=== PATIENT | female | born 1945 | race Caucasian/White ===

== ENCOUNTER 2018-05-08 09:54 | Day surgery (SDC) | payer MEDICARE, MEDICAID ==
[~2018-05-08] VITALS: Ht 152.4 cm; Wt 63.5 kg
[2018-05-08] VITALS (10 sets, daily range): BP systolic 137–163; BP diastolic 70–82
[~2018-05-08 09:54] MED LIST: CRESTOR10 M2 ORAL; LEVOTHYROXINE75 MCG ORAL; ceFAZolin sod 1 GM in NS 55 ML IVPB ONE
[2018-05-08] MEDS ORDERED: Midazolam 2mg/2ml Inj ONE (09:55)
[2018-05-08 10:22] LABS: HEMOGLOBIN 12.9 G/DL (12.0-16.0); LYMPHOCYTES % (AUTO) 38.9 % (20.0-45.0); MEAN CORPUSCULAR VOLUME 90 FL (80-99); MONOCYTES % (AUTO) 6.8 % (1.0-10.0); NEUTROPHILS % (AUTO) 51.4 % (45.0-75.0); PLATELET COUNT 196 K/UL (150-450); RED BLOOD COUNT 4.33 M/UL (4.20-5.40); RED CELL DISTRIBUTION WIDTH 11.3 % (11.6-14.8); WHITE BLOOD COUNT 5.5 K/UL (4.8-10.8)
[2018-05-08 10:34] LABS: ANION GAP 7 mmol/L (5-15); BLOOD UREA NITROGEN 16 mg/dL (7-18); CALCIUM 9.1 MG/DL (8.5-10.1); CARBON DIOXIDE 27 MMOL/L (21-32); CHLORIDE 106 MMOL/L (98-107); CREATININE 0.7 MG/DL (0.55-1.30); SODIUM 140 MMOL/L (136-145)
--- NOTE | 2018-05-08 10:43 | Pre-Procedure Note/Attestation ---
Pre-Procedure Note/Attestation Complete Prior to Procedure Planned Procedure: right Procedure Narrative: correction of painful bunion right foot with osteotomy and screw fixation . Indications for Procedure Pre-Operative Diagnosis: right foot bunion Attestation I attest that I discussed the nature of the procedure; its benefits; risks and complications; and alternatives (and the risks and benefits of such alternatives ), prior to the procedure, with the patient (or the patient's legal parts representative). I attest that, if there was a reasonable possibility of needing a blood transfusion, the patient (or the patient's legal parts representative) was given the [facility] standardized written summary, pursuant to the Cy Haslett Blood Safety Act ([place] Health and Safety Code # 1645, as amended). I attest that I re-evaluated the patient just prior to the surgery and that there has been no change in the patient's H&P, except as documented below: Sanjay Carias DPM May 08, 2018 10:43
--- NOTE | 2018-05-08 11:20 | Anethesia Preoperative Eval ---
Anesthesia Pre-op PMH/ROS General Date of Evaluation: May 08, 2018 Time of Evaluation: 12:55 Anesthesiologist: Almita Cates CRNA ASA Score: ASA 2 Mallampati Score Class I : Soft palate, uvula, fauces, pillars visible Class II: Soft palate, uvula, fauces visible Class III: Soft palate, base of uvula visible Class IV: Only hard plate visible Mallampati Classification: Class II Surgeon: Jv Diagnosis: Bunion RIGHT Surgical Procedure: Bunionectomy RIGHT Anesthesia History: none Family History: no anesthesia problems Allergies: Coded Allergies: No Known Allergies (Unverified , 05/08/18) Medications: see eMAR Past Medical History Cardiovascular: Reports: other - Hypercholestolemia; Denies: HTN, CAD, ID, valve dz, arrhythmia Pulmonary: Denies: asthma, COPD, ANGUS, other Gastrointestinal/Genitourinary: Denies: GERD, CRI, ESRD, other Neurologic/Psychiatric: Denies: dementia, CVA, depression/anxiety, TIA, other Endocrine: Reports: hypothyroidism - s/p thyroidectomy; Denies: DM, steroids, other HEENT: Denies: cataract (L), cataract (R), glaucoma, [place] (L), [place] (R), other Hematology/Immune: Denies: anemia, DVT, bleeding disorder, other Musculoskeletal/Integumentary: Denies: OA, RA, DJD, DDD, edema, other PMH Narrative: as above PSxH Narrative: thyroidectomy, LEFT bunionectomy Anesthesia Pre-op Phys. Exam Physician Exam Last Vital Signs Date Time Temp Pulse Resp B/P (MAP) Pulse Ox O2 Delivery O2 Flow Rate FiO2 05/08/18 10:59 Room Air 05/08/18 10:58 98.2 54 18 137/79 (98) 97 98.2 Constitutional: NAD Neurologic: CN 2-12 intact Cardiovascular: RRR Respiratory: CTA Gastrointestinal: S/NT/ND Airway Exam Mallampati Score: Class II MO: full TMD: > 3FB ROM: full Teeth: missing Dentures: upper, lower Anesthesia Pre-op A/P Labs Hematology Test 05/08/18 10:10 White Blood Count 5.5 K/UL (4.8-10.8) Red Blood Count 4.33 M/UL (4.20-5.40) Hemoglobin 12.9 G/DL (12.0-16.0) Hematocrit 39.0 % (37.0-47.0) Mean Corpuscular Volume 90 FL (80-99) Mean Corpuscular Hemoglobin 29.8 PG (27.0-31.0) Mean Corpuscular Hemoglobin Concent 33.1 G/DL (32.0-36.0) Red Cell Distribution Width 11.3 % (11.6-14.8) L Platelet Count 196 K/UL (150-450) Mean Platelet Volume 7.2 FL (6.5-10.1) Neutrophils (%) (Auto) 51.4 % (45.0-75.0) Lymphocytes (%) (Auto) 38.9 % (20.0-45.0) Monocytes (%) (Auto) 6.8 % (1.0-10.0) Eosinophils (%) (Auto) 1.0 % (0.0-3.0) Basophils (%) (Auto) 2.0 % (0.0-2.0) Coagulation Test 05/08/18 10:10 Prothrombin Time 10.3 SEC (9.30-11.50) Prothromb Time International Ratio 1.0 (0.9-1.1) Activated Partial Thromboplast Time 27 SEC (23-33) Chemistry Test 05/08/18 10:10 Sodium Level 140 MMOL/L (136-145) Potassium Level 4.0 MMOL/L (3.5-5.1) Chloride Level 106 MMOL/L (98-107) Carbon Dioxide Level 27 MMOL/L (21-32) Anion Gap 7 mmol/L (5-15) Blood Urea Nitrogen 16 mg/dL (7-18) Creatinine 0.7 MG/DL (0.55-1.30) Estimat Glomerular Filtration Rate mL/min (>60) Glucose Level 97 MG/DL (74-106) Calcium Level 9.1 MG/DL (8.5-10.1) Studies Pre-op Studies: EKG Risk Assessment & Plan Assessment: ASA 2, ok to proceed with anesthesia Plan: MAC Status Change Before Surgery: Almita Mercado CRNA May 08, 2018 11:20
[2018-05-08] MEDS ORDERED: LR 1000ml ONE (13:00)
[2018-05-08] MEDS ORDERED: Lidocaine 1% Plain 30 ml INJ ONE (13:06)
[2018-05-08] MEDS ORDERED: Dexamethasone 4mg/ml vial ONE (13:06)
[2018-05-08] MEDS ORDERED: Propofol 200mg/20ml IV ONE (13:07)
[2018-05-08] MEDS: Bupivacaine 0.5% Inj 30 ml vial INJ ONE ×2 (13:25→14:02)
[2018-05-08] MEDS ORDERED: Betadine 10% Oint 30gm TOPIC ONE (14:08)
--- NOTE | 2018-05-08 14:36 | Brief Operative Note ---
Immediate Post Operative Note Operative Note Pre-op Diagnosis: right foot bunion Procedure: correction of bunion with screw fixation right foot Post-op Diagnosis: same as pre op Surgeon: sanjay reed Anesthesiologist: yaya henderson Anesthesia: MAC Specimen: yes Complications: none Condition: stable Fluids: none Estimated Blood Loss: none Drains: none Tourniquet time: 57 Implant(s) used?: Yes Sanjay Carias DPM May 08, 2018 14:36
--- NOTE | 2018-05-08 14:43 | Immediate Post-Op Evaluation ---
Immediate Post-Op Evalulation Immediate Post-Op Evalulation Procedure: Bunionectomy RIGHT Date of Evaluation: May 08, 2018 Time of Evaluation: 14:34 IV Fluids: LR 300 ml Estimated Blood Loss: minimal Blood Pressure Systolic: 147 Blood Pressure Diastolic: 70 Pulse Rate: 60 Respiratory Rate: 19 O2 Sat by Pulse Oximetry: 99 Temperature (Fahrenheit): 99.6 Pain Score (1-10): 0 Nausea: No Vomiting: No Complications none Patient Status: awake, reacts Drug: cefazolin 1 gm Given Within 1 Hr of Incision: Yes Time Given: 13:15 Almita Cates CRNA May 08, 2018 14:43
--- NOTE | 2018-05-08 15:56 | Diagnostic Imaging Report ---
Indication: Right foot pain Technique: 3 views right foot Comparison: none Findings: There is marked hallux valgus, bunion formation, less severe metatarsus adductus. There is hammertoe deformities second through fifth digits. Bones are osteoporotic. No acute fractures. No dislocations. No osseous erosions. Impression: Deformities, as described. Osteoporosis No acute bony trauma
--- NOTE | 2018-05-08 15:57 | Diagnostic Imaging Report ---
Indication: Reason For Exam: PREOP Technique: One view of the chest Comparison: none Findings: Lungs and pleural spaces are clear. Heart size is normal Impression: No acute process
--- NOTE | 2018-05-08 17:28 | Diagnostic Imaging Report ---
Indication: Postoperative Technique: 3 views right foot Comparison: none Findings: Patient is status post bunionectomy and first metatarsal osteotomy. A single surgical screws in place. Overlying plaster splint obscures bony detail. Impression: Postoperative right foot. No unusual features
--- NOTE | 2018-05-08 21:30 | Pre-op HX & Phy Repo 2 SIG ---
DATE OF ADMISSION: 05/08/2018 DATE OF SURGERY: 05/08/2018 LOCATION: [facility]. SURGEON: Sanjay Carias D.P.M. HISTORY OF PRESENT ILLNESS: This is a 72-year-old female complaining of painful right foot bunion for the past nine years. The pain has increased dramatically in the past few years. The patient had this deformity, has been treated conservatively using padding, offloading, shoe gear modification, activity modification, but they have failed to decrease inflammation and pain. She reports no recent illnesses. No current nausea, vomiting, or shortness of breath. PAST MEDICAL HISTORY: Positive for cholesterol. PAST SURGICAL HISTORY: The patient has had thyroid surgery and she has had bunion surgery on the left nine years. MEDICATIONS: The patient is taking medication for thyroid. SOCIAL HISTORY: Denies tobacco or illicit drugs. FAMILY HISTORY: No pertinent findings. PHYSICAL EXAMINATION: VITAL SIGNS: Temperature is 97.6, pulse is 66, respiratory rate is 16, blood pressure is 130/80, and O2 is 99% on room temperature. DERMATOLOGIC: There are no open lesions. There is hyperkeratotic tissue noticed of the medial eminence of the body on the right foot. NEUROLOGIC: Sensation is intact to light touch. Dorsalis pedis and posterior tibial are palpable. No edema or erythema noticed. MUSCULOSKELETAL: Hallux abductovalgus with medial eminence with decreased motion, on the right is noticed. Full muscle strength is noticed. LABORATORY DATA: Have been checked. The patient has been cleared by Dr. Metzger for surgery today. ASSESSMENT AND PLAN: This is a 72-year-old female with progressively worsened body and deformity of the right foot, creating pain and discomfort. The pain and discomfort have been progressively worsened over the years. She has tried numerous conservative measurements, feeling pain. Recommended surgery as a next step in management. The risks, benefits, and alternatives were discussed with the patient in detail who understands and would like to proceed with surgery. All the patient's questions and concerns have been answered. The patient is scheduled for surgery today, 05/08/2018, at [facility]. Sanjay Carias D.P.M. DR: STERLING JOB#: [id number] CC:
--- NOTE | 2018-05-08 22:15 | Operative Note - Dictated ---
DATE OF OPERATION: 05/08/2018 LOCATION: [facility]. SURGEON: Sanjay Carias D.P.M. ANESTHESIOLOGIST: Almita Cates CRNA. PREOPERATIVE DIAGNOSIS: Right hallux abductovalgus (bunion) with medial eminence. HEMOSTASIS: Pneumatic ankle tourniquet set at 250 mmHg. ESTIMATED BLOOD LOSS: Negligible. MATERIALS USED: A 22 mm 3-0 cannulated Vilex screw, 2-0 Vicryl, 3-0 Vicryl, 4-0 Vicryl, and 4-0 nylon. INJECTABLES: 20 mL of 0.25% Marcaine and 1% lidocaine in 2:1 ratio were injected into the right foot in a Camp block fashion at the first MPJ joint, postoperatively 2 mL of dexamethasone with 6 mL of 0.25% plain Marcaine was given for postoperative pain management and decrease inflammation. PATHOLOGY: Bone resected from the medial eminence was sent to pathology and further study. DRESSING: The incision was covered using Betadine ointment, Xeroform, 4 x 4, Kerlix, and Coban and a forefoot cast was applied to the patient. COMPLICATIONS: None. CONDITION: Stable. DESCRIPTION OF THE PROCEDURE IN DETAIL: The patient was brought into the operating room and assisted onto the operating table in supine position. She was well padded to avoid any excessive pressure. The patient was then given 1 g of Ancef before the start of surgery. At this time, time-out was performed. Cotton padded pneumatic ankle tourniquet was then placed about the patient's right ankle. Local anesthetic block of approximately 20 mL of 0.5% Marcaine and 1% lidocaine in ratio was given. The foot was then scrubbed, prepared, and draped in the usual aseptic manner. Attention was then directed to the right foot where pneumonic ankle tourniquet was inflated to 250 mmHg. At this time, a pre-planned incision was made on the right foot at the medial plantar eminence of the bunion contouring the deformity. The incision was deepened through subcutaneous tissue. All vital signs were inspected and all bleeding was cauterized. At this time, the capsule was exposed. A linear capsulotomy was performed to expose the head of the first metatarsal. Multiple cystic changes and hypertrophic bone was noticed at this time. After the capsule was retracted back using a sagittal saw, the excessive portion of the medial eminence was osteotomized and passed off from the field. At this time, a planned double osteotomy was performed included V-shape osteotomy and having the apex facing distally and the base facing proximally. The osteotomy was done from medial to lateral creating the capital fragments. At this time, the capital fragment was shifted from its medial position about 4 mm to its more corrected lateral position alignment with the base of the proximal phalanx. At this time, medial release was done going through the incision at the base of the proximal phalanx. At this time, it was noticed that the sesamoid falling to much more better position. At this time, a premeasured K-wire was driven from dorsal proximal to distal plantar from the distal shaft of the first metatarsal down to the capital fragments. The premeasured K-wire was measured and was noted to be 22 mm. At this time, a cannulated screw was inserted into the premeasured K-wire and this screw was driven with the same direction of the K-wire. Great purchase was noticed, but it was also noted there was multiply cystic changes and soft bone was noticed. At this time, attention was directed to the capsule where a wedge was removed to perform tightening of the capsule on the medial side to a more corrected position. At this time, lavage was utilized to wash the area. The capsule was then approximated using 2-0 nylon. Subsequently, the premeasured K-wire was driven out. At this time, subcutaneous tissue was closed using 4-0 Vicryl and subsequently the skin was closed using 4-0 nylon. After the incision was closed, the postoperative injection containing 2 mL of Decadron and 6 mL centimeters of Marcaine was given in the area. Dressing consist of Betadine ointment, Xeroform, 4 x 4, Amando was done. After the dressing was applied, the tourniquet was deflated and immediate hyperemia was noted to digits 1 through 5. At this time, a forefoot plastic cast was applied to the patient. The patient was then transferred from the operating room to the recovery room. Walker and postoperative instruction was given to the patient. The patient was reminded to take all medication and set appointment with Dr. Carias in the next clinic hours. There were no complications of surgery. The patient will be discharged home after she is cleared by the anesthesiologist. Sanjay Carias D.P.M. DR: YOLA JOB#: [id number] CC:
--- NOTE | 2018-05-14 19:06 | Cardiology Report ---
APPROVED REPORT EKG Measurement Heart [id number] CO [id number] Sinus bradycardia Otherwise normal ECG
== END 2018-05-08 16:15 | disposition home or self-care (01) ==
LOC: SUR 09:54
DX: M21.611 Bunion of right foot (principal); M20.11 Hallux valgus (acquired), right foot; E03.9 Hypothyroidism, unspecified; E78.00 Pure hypercholesterolemia, unspecified
CPT/HCPCS: 28299; 36415; 71045; 73630; 80048; 85025; 85610; 85730; 93005; 97161; C1713; G8978; G8979; G8980; J0690; J1100; J2001; J2250; J2704; J3490; 94003; 94150